=== PATIENT | female | born 1940 | race Caucasian/White ===

== ENCOUNTER 2020-03-12 11:18 | Emergency (ER) | payer MEDICARE, BC ==
[~2020-03-12] VITALS: Ht 149.9 cm; Wt 130.0 kg
--- NOTE | 2020-03-12 12:14 | NUR ---
RELIEF CHARGE: PT TO ROOM VIA WHEELCHAIR BY MIRELLA MANN.
--- NOTE | 2020-03-12 12:24 | NUR ---
ASSISTED PT TO BR VIA WC. INSTRUCTED ON CLEAN CATCH URINE SAMPLE.
--- NOTE | 2020-03-12 12:29 | NUR ---
ERP AT BS.
[2020-03-12 12:56] LABS: MICROSCOPIC NOT IND
[2020-03-12] MEDS ORDERED: KETOROLAC 30 MG/1 ML ONE (12:57)
[2020-03-12] MEDS ORDERED: ONDANSETRON 2MG/ML, 2ML ONE (12:57)
[2020-03-12] MEDS ORDERED: KETOROLAC 30 MG/1 ML IVPush ONE (13:00)
[2020-03-12] MEDS ORDERED: ONDANSETRON 2MG/ML, 2ML IVPush ONE (13:00)
[2020-03-12] MEDS ORDERED: SODIUM CHLORIDE FLUSH 10ML SYR IVF ONE (13:00)
[2020-03-12 13:12] LABS: BASOPHILS # (AUTO) 0.04 x10^3/uL (0-0.1); BASOPHILS % (AUTO) 1 % (0-1); EOSINOPHILS # (AUTO) 0.62 x10^3/uL (0-0.4); EOSINOPHILS % (AUTO) 8 % (1-7); LYMPHOCYTES # (AUTO) 2.44 x10^3/uL (1-3.4); LYMPHOCYTES % (AUTO) 33 % (22-44); MD NO; MEAN CORPUSCULAR HEMOGLOBIN 31.6 pg (27.0-34.8); MEAN CORPUSCULAR HGB CONC 32.8 g/dL (32.4-35.8); MEAN CORPUSCULAR VOLUME 96.2 fL (80-100); MEAN PLATELET VOLUME 9.6 fL (7.4-10.4); MONOCYTES # (AUTO) 0.62 x10^3/uL (0.2-0.8); MONOCYTES % (AUTO) 8 % (2-9); NEUTROPHILS # (AUTO) 3.66 x10^3/uL (1.8-6.8); NEUTROPHILS % (AUTO) 50 % (42-75); PLATELET COUNT 220 x10^3/uL (130-400); RED BLOOD COUNT 4.59 x10^6/uL (3.82-5.3); RED CELL DISTRIBUTION WIDTH 15.4 % (9.6-15.2)
[2020-03-12 13:20] LABS: ALBUMIN 3.5 g/dL (3.4-5.0); ANION GAP 6 mmol/L (5-15); CALCIUM 8.6 mg/dL (8.5-10.1); CHLORIDE 106 mmol/L (98-107)
[2020-03-12 13:24] LABS: ALANINE AMINOTRANSFERASE 39 U/L (12-78); ALKALINE PHOSPHATASE 129 U/L (45-117); BILIRUBIN,TOTAL 0.4 mg/dL (0.2-1.0); CREATININE 1.06 mg/dL (0.55-1.02); TOTAL PROTEIN 6.5 g/dL (6.4-8.2)
[2020-03-12 14:00] VITALS: BP 110/81
--- NOTE | 2020-03-12 14:03 | NUR ---
PT TO CT VIA [facility].
--- NOTE | 2020-03-12 14:59 | NUR ---
D/C INSTRUCTIONS & F/U APPT RV'WD WITH PT, SHE VERBALIZES UNDERSTANDING. INSTRUCTED PT TO RETURN TO ED FOR INCREASING PAIN, N/V, OR OTHER CONCERNING SYMPTOMS. PT ASSISTED OUT OF ED VIA PERSONAL WC WITH .
== END 2020-03-12 14:58 | disposition home or self-care (01) ==
LOC: ED 14:50
DX: N20.1 Calculus of ureter (principal); I10 Essential (primary) hypertension; J45.909 Unspecified asthma, uncomplicated; M10.9 Gout, unspecified; Z90.49 Acquired absence of other specified parts of digestive tract
CPT/HCPCS: 36415; 74176; 80053; 81003; 85025; 96374; 96375; 99284; J1885; J2405

== ENCOUNTER → 2020-08-13 | Outpatient (CLI) | payer MEDICARE, BC | END | disposition home or self-care (01) | LOC: CFH 14:24 | PROVIDERS: ATTEND Internal Medicine | DX: R91.1 Solitary pulmonary nodule (principal); J84.10 Pulmonary fibrosis, unspecified; M25.78 Osteophyte, vertebrae; K43.9 Ventral hernia without obstruction or gangrene | CPT/HCPCS: 71250 ==

== ENCOUNTER 2021-02-26 10:55 | Emergency (ER) | payer MEDICARE, BC ==
[~2021-02-26] VITALS: Ht 149.9 cm; Wt 131.8 kg
--- NOTE | 2021-02-26 11:23 | NUR ---
Pt with hx of diverticulitis. Took full course of abx for flare up and now concerned about c-diff. She has hx of and is now experiencing bloody diarrhea with mucous. Pt provided with commode and educated about stool sample.
[2021-02-26] MEDS ORDERED: SODIUM CHLORIDE 0.9% 1,000 ML IV ONE (11:30)
[2021-02-26] MEDS ORDERED: SODIUM CHLORIDE 0.9% 1,000ML IVBOLUS ONE (11:30)
[2021-02-26] MEDS ORDERED: SODIUM CHLORIDE FLUSH 10ML SYR IVF ONE (11:30)
[2021-02-26 11:39] LABS: BASOPHILS % (AUTO) 1 % (0-1); EOSINOPHILS % (AUTO) 4 % (1-7); LYMPHOCYTES % (AUTO) 26 % (22-44); MEAN CORPUSCULAR HEMOGLOBIN 32.6 pg (27.0-34.8); MEAN CORPUSCULAR HGB CONC 34.1 g/dL (32.4-35.8); MEAN PLATELET VOLUME 9.3 fL (7.4-10.4); MONOCYTES % (AUTO) 7 % (2-9); NEUTROPHILS % (AUTO) 62 % (42-75); PLATELET COUNT 181 x10^3/uL (130-400); RED BLOOD COUNT 4.33 x10^6/uL (3.82-5.3); RED CELL DISTRIBUTION WIDTH 15.2 % (9.6-15.2)
[2021-02-26 11:44] LABS: ALANINE AMINOTRANSFERASE 28 U/L (12-78); ALBUMIN 3.3 g/dL (3.4-5.0); ANION GAP 5 mmol/L (5-15); CALCIUM 9.2 mg/dL (8.5-10.1); CHLORIDE 109 mmol/L (98-107); CREATININE 1.01 mg/dL (0.55-1.02)
[2021-02-26 11:46] LABS: ALKALINE PHOSPHATASE 96 U/L (45-117); BILIRUBIN,TOTAL 0.5 mg/dL (0.2-1.0); TOTAL PROTEIN 6.4 g/dL (6.4-8.2)
--- NOTE | 2021-02-26 11:51 | NUR ---
JEFF Kincaid at bedside to start IV.
--- NOTE | 2021-02-26 12:26 | NUR ---
Pt up to bedside commode.
--- NOTE | 2021-02-26 12:52 | NUR ---
Pt unable to provide stool sample.
--- NOTE | 2021-02-26 13:03 | NUR ---
Sample collected so lables will print in lab to send pt home with labled sample cup for pt to collect stool sample at home and return.
[2021-02-26 13:09] VITALS: BP 165/71
[2021-02-26 17:03] LABS: CLOSTRIDIUM DIFFICILE ANTIGEN NEGATIVE; CLOSTRIDIUM DIFFICILE TOXIN NEGATIVE (Negative)
--- NOTE | 2021-02-26 18:34 | NUR ---
This RN called pt to inform her of negative c-diff result.
== END 2021-02-26 13:30 | disposition home or self-care (01) ==
LOC: ED 11:25
DX: R19.7 Diarrhea, unspecified (principal); Z86.718 Personal history of other venous thrombosis and embolism; R94.31 Abnormal electrocardiogram [ECG] [EKG]; I10 Essential (primary) hypertension; J45.909 Unspecified asthma, uncomplicated; M10.9 Gout, unspecified; Z90.49 Acquired absence of other specified parts of digestive tract; Z88.2 Allergy status to sulfonamides; Z88.6 Allergy status to analgesic agent; Z88.5 Allergy status to narcotic agent
CPT/HCPCS: 36415; 80053; 85025; 87324; 93005; 96360; 99284; J7030

== ENCOUNTER 2021-04-02 11:07 | Outpatient (CLI) | payer MEDICARE, BC ==
[2021-04-02 12:56] LABS: FOLATE LEVEL 19.7 ng/mL (3.1-17.5)
== END 2021-04-02 23:59 | disposition home or self-care (01) ==
LOC: LAB 11:07
PROVIDERS: ATTEND Nurse Practitioner Family
DX: R44.2 Other hallucinations (principal)
CPT/HCPCS: 36415; 82306; 82607; 82746; 84207; 84630

== ENCOUNTER 2021-04-15 09:03 | Day surgery (SDC) | payer MEDICARE, BC ==
[~2021-04-15] VITALS: Ht 149.9 cm; Wt 133.9 kg
[2021-04-15 09:46] VITALS: BP 138/81
[2021-04-15] MEDS ORDERED: MIDAZOLAM 1 MG/ML, 5ML ONE (11:36)
[2021-04-15] MEDS ORDERED: FENTANYL PF 100 MCG/2ML ONE (11:36)
[2021-04-15] MEDS ORDERED: GADOTERATE 7.5 MMOL/15ML SYR ONE (12:08)
== END 2021-04-15 13:35 | disposition home or self-care (01) ==
LOC: OUT 09:03 → EDSTATUS 10:45 → OUT 13:35
PROVIDERS: ATTEND Nurse Practitioner Family
DX: R44.2 Other hallucinations (principal); I10 Essential (primary) hypertension; J45.909 Unspecified asthma, uncomplicated; Z88.2 Allergy status to sulfonamides; Z88.8 Allergy status to other drugs, medicaments and biological substances; Z88.5 Allergy status to narcotic agent; Z88.1 Allergy status to other antibiotic agents; Z98.890 Other specified postprocedural states; Z79.899 Other long term (current) drug therapy; Z79.01 Long term (current) use of anticoagulants
CPT/HCPCS: 70553; 99156; 99157; A9575; J2250; J3010